=== PATIENT | female | born 1980 | race Caucasian/White ===

== ENCOUNTER 2022-02-28 08:41 | Emergency (ER) | payer MEDICAID, SELFPAY ==
[2022-02-28] VITALS (9 sets, daily range): BP systolic 102–139; BP diastolic 68–88; PULSE 76–90; RESP 14–23; TEMP 36.4; O2SAT 98–100
--- NOTE | ~2022-02-28 | CT_ITS ---
EXAMINATION: CT cervical spine wo con DATE: 02/28/2022 12:30 INDICATION: Right-sided neck pain TECHNIQUE: Computed tomography (CT) of the cervical spine was performed without intravenous contrast. The dose-length product (DLP) was 533.47 mGy-cm. Automated exposure control and iterative reconstruc tion technique were employed. COMPARISON: None FINDINGS: There is reversal of the normal cervical lordosis. No fracture, dislocation, or subluxation . There is moderate loss of intervertebral disc space height at C5-6 and C6-7. Small degenerative ost eophytes project from the anterior endplates of multiple vertebral bodies. The odontoid is intact. Th e prevertebral soft tissues are normal. There is mild uncovertebral joint osteoarthritis at C5-6 and C6-7. IMPRESSION: 1. Moderate cervical spondylosis at C5-6 and C6-7 without acute osseous abnormality. Reviewed, dictated and finalized at location A. [facility]IS[facility] LEAD IMPRESSION: 1. Moderate cervical spondylosis at C5-6 and C6-7 without acute osseous abnorma lity.
--- NOTE | ~2022-02-28 | XR_ITS ---
EXAMINATION: XR chest 2V DATE: 02/28/2022 09:58 INDICATION: Right chest pain radiating to the back. TECHNIQUE: Frontal and lateral views of the chest were obtained. COMPARISON: None. FINDINGS: The chest demonstrates clear lungs without pneumonia, pleural effusion, or pneumothorax. Th e heart size is normal. IMPRESSION: 1. No acute cardiopulmonary disease. Reviewed, dictated and finalized at location A. [facility]
--- NOTE | 2022-02-28 09:20 | ECG_ITS ---
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
[2022-02-28 09:38] LABS: Basophils Percent Auto 0.5 % (0.2-1.2); Eosinophils Absolute Auto 0.3 K/mm3 (0-0.3); Eosinophils Percent Auto 3.2 % (0-4.4); Hematocrit 42.3 % (37.0-47.0); Hemoglobin 13.7 g/dL (12.0-15.0); Immature Granulocyte Absolute 0.03 K/mm3 (0.00-0.031); Immature Granulocyte Percent A 0.4 % (0-0.5); Lymphocytes Absolute Auto 2.12 K/mm3 (0.9-3.2); Lymphocytes Percent Auto 26.1 % (18.3-44.2); Mean Corpuscular HGB Conc 32.4 g/dl (32-36); Mean Corpuscular Hemoglobin 29.1 pg (26-34); Mean Corpuscular Volume 89.8 fl (80-100); Mean Platelet Volume 9.5 fl (7.4-10.4); Monocytes Absolute Auto 0.4 K/mm3 (0.1-0.6); Monocytes Percent Auto 5.2 % (2.6-8.5); Neutrophils Absolute Auto 5.3 K/mm3 (1.3-6.7); Neutrophils Percent Auto 64.6 % (45.5-73.1); Platelet Count Result 236 k/mm3 (150-375); Red Blood Count 4.71 M/mm3 (4.2-5.4); Red Cell Distribution Width 14.5 % (11.5-14.5); White Blood Count 8.1 K/mm3 (4.5-10.0)
[2022-02-28 09:51] LABS: Prothrombin Time 12.6 Seconds (11.1-14.7)
[2022-02-28 09:52] LABS: Partial Thromboplastin Time 26.2 SECONDS (22.3-36.8)
[2022-02-28 09:57] LABS: Alanine Aminotransferase 17 U/L (6-35); Albumin Level 4.3 g/dL (3.5-5.1); Alkaline Phosphatase 81 U/L (38-126); Anion Gap 6 mmol/L (8-16); Aspartate Amino Transferase 22 U/L (14-36); Bilirubin,Total 0.5 mg/dL (0.2-1.3); Blood Urea Nitrogen 10 mg/dL (7-17); Calcium 8.5 mg/dL (8.4-10.2); Carbon Dioxide 26 mmol/L (22-30); Chloride 107 mmol/L (98-107); Estimated Glomerular Filt Rate > 60; Glucose 89 mg/dL (65-110); Lipase 30 U/L (23-300); Sodium 139 mmol/L (137-145)
[2022-02-28 10:01] LABS: Troponin I < 0.012 ng/mL (0.000-0.034)
--- NOTE | 2022-02-28 10:35 | ED.EXTPRO ---
HPI - Extremity Problem General Chief complaint: Extremity Problem,Nontraumatic Stated complaint: right shoulder pain Time Seen by Provider: 02/28/22 09:18 Source: patient Mode of arrival: ambulatory Limitations: no limitations History of Present Illness HPI Narrative: This is a 42 year old female that presents to the ER for right upper back pain ongoing over the last 4 days. Reports no known injury or trauma. Reports the pain is worse with certain movements. It is sharp and intermittent. She has been taking over the counter pain medication with little relief. She has not taken anything for pain yet today. Reports she has also been experiencing some trouble with reflux and has been having to take Tums often. Denies fever, vomiting, shortness of breath, numbness or weakness. Related Data Home Medications Medication Instructions Recorded Confirmed dulaglutide 1.5 mg/0.5 mL 1.5 mg subcut WEEKLY 02/28/22 02/28/22 subcutaneous pen injector ([facility]) hydroxyzine HCl 50 mg tablet 50 mg PO BID PRN Pain 02/28/22 02/28/22 Allergies Allergy/AdvReac Type Severity Reaction Status Date / Time No Known Allergies Allergy Verified 02/28/22 08:54 Review of Systems Review of Systems: CONSTITUTIONAL: Denies fever CARDIOVASCULAR: Reports chest/epigastric pain. Denies edema. RESPIRATORY: Denies cough or dyspnea. GASTROINTESTINAL: Reports abdominal pain. Denies nausea MUSCULOSKELETAL: Reports back pain, joint pain, and myalgia. NEUROLOGIC: Denies numbness, or weakness. All systems reviewed & are unremarkable except as noted in HPI and below PMFSH Past Medical History Medical History (Updated 02/28/22 @ 13:00 by Debbie Holder PA-C) No active medical problems Social History Social History (Updated 02/28/22 @ 10:39 by Debbie Holder PA-C) Smoking status: Never smoker Exam Narrative: GENERAL: Well-appearing, well-nourished, and in no acute distress. HEAD: Normocephalic, atraumatic. EYES: EOMI. NECK: Supple. No adenopathy or masses CHEST: Clear to auscultation. No respiratory distress. No wheezes rales or rhonchi HEART: Regular rate and rhythm. No murmur heard. Normal peripheral pulses. ABDOMEN: Soft, nontender, nondistended, normal active bowel sounds. EXTREMITIES: Normal range of motion. No edema. Strength equal in bilateral upper extremities (5/5) SKIN: Warm, dry, no rash. NEURO: No focal deficits. Alert and oriented x3. PSYCH: Normal mood and affect Course Course Emergency Course: Patient updated on workup. Resting comfortably Vital Signs Vital signs: Vital Signs Temperature 97.5 F L 02/28/22 08:46 Pulse Rate 90 02/28/22 08:46 Respiratory Rate 16 02/28/22 08:46 Blood Pressure 139/80 02/28/22 08:46 Pulse Oximetry 100 02/28/22 08:46 Oxygen Delivery Room Air 02/28/22 08:46 Temperature 97.5 F L 02/28/22 08:46 Pulse Rate 80 02/28/22 11:02 Respiratory Rate 23 H 02/28/22 11:02 Blood Pressure 102/71 02/28/22 11:02 Pulse Oximetry 100 02/28/22 11:02 Oxygen Delivery Room Air 02/28/22 08:46 MDM - Extremity (Nontraumatic) MDM Narrative Medical decision making narrative: Patient presents to the emergency department for right sided posterior neck pain ongoing over the last 4 days. No recent injury or trauma. Patient is afebrile and nontoxic-appearing. She is neurologically intact. Pain is worse with certain movements and relieved with rest. Patient was also experiencing some reflux type symptoms. CBC and metabolic panel without concerning findings. Her lipase is normal. She has no abdominal tenderness on exam. No concerning EKG changes and her baseline troponin is negative. Her D-dimer is not elevated. Chest x-ray without acute cardiopulmonary abnormality. CT scan of the cervical spine shows moderate cervical spondylosis at C5/C6. No acute osseous abnormalities. Does show some muscle spasm. Patient was updated on case findings. Instructed to rest, use heat,
[2022-02-28] MEDS: diazePAM INJ (*CRX) 10 MG/2 ML SYRINGE 5 MG IV PUSH (10:49)
[2022-02-28] MEDS: PANTOPRAZOLE SODIUM IV 40 MG VIAL IV PUSH (10:49)
[2022-02-28 11:54] LABS: D Dimer 0.45 ug/mL (<0.48)
[2022-02-28] MEDS: KETOROLAC 15 MG/ML VIAL (*BKC) IV PUSH (12:18)
[2022-02-28 13:23] LABS: Troponin I < 0.012 ng/mL (0.000-0.034)
== END 2022-02-28 13:20 | disposition home or self-care (01) ==
PROVIDERS: Emergency Provider Physician Assistant
DX: M54.2 Cervicalgia (principal); M47.812 Spondylosis without myelopathy or radiculopathy, cervical region
CPT/HCPCS: 36415; 71046; 72125; 80053; 83690; 84484; 85025; 85380; 85610; 85730; 93005; 96365; 96375; 99284; C9113; J0131; J1885; J3360